=== PATIENT | male | born 2000 | race African-American/Black ===

== ENCOUNTER 2020-08-20 16:50 | Inpatient (IN) ==
[2020-08-20] MEDS ORDERED: DIPH/TET/ACEL PERT BOOSTER VACCINE 0.5 ML VIAL IM ONE (16:57)
[2020-08-20] MEDS ORDERED: LACTATED RINGERS 1,000 ML IV STA (16:57)
[2020-08-20 17:18] LABS: Basophils % 0.4 % (0.0-0.8); Eosinophils # 0.1 10*3/uL (0.0-0.87); Eosinophils % 0.7 % (0.00-10.9); Hematocrit 39.2 VOL% (42.0-52.0); Hemoglobin 13.1 GM/DL (14.0-18.0); Immature Granulocytes % 0.5 %; Immature Granulocytes Absolute 0.05 #; Lymphocytes # 4.1 10*3/uL (1.4-4.0); Lymphocytes % 38.4 % (21.2-54.2); Mean Corpuscular HGB Conc 33.4 GM/DL (32-36); Mean Corpuscular Volume 102.3 FL (87-102); Mean Platelet Volume 9.3 FL (9.6-12.0); Monocytes % 10.2 % (1.7-12.7); Neutrophils % 49.8 % (38.7-73.9); Platelet Count 305 T/CUMM (130-400); Red Blood Count 3.83 MC/CUMM (3.8-5.5); Red Cell Distribution Width 11.9 % (9.3-17.3); White Blood Count 10.8 T/CUMM (4-12)
[2020-08-20] MEDS ORDERED: ceFAZolin 2,000 MG in SYRINGE 1 EACH IV ONE (17:27)
[2020-08-20] MEDS ORDERED: propofoL 200 MG/20 ML VIAL IV ONE (17:28)
[2020-08-20] MEDS ORDERED: ROCURONIUM 50 MG/5 ML VIAL IV ONE (17:28)
[2020-08-20] MEDS ORDERED: MIDAZOLAM 2 MG/2 ML VIAL ONE (17:29)
[2020-08-20] MEDS ORDERED: SEVOFLURANE 1 UNIT/15 MINUTE INH ONE ×6 (17:29→19:32)
[2020-08-20] MEDS ORDERED: fentaNYL 100 MCG/2 ML VIAL ONE (17:29)
[2020-08-20] MEDS ORDERED: LIDOCAINE 2% 5 ML VIAL ONE (17:29)
[2020-08-20] MEDS ORDERED: SUCCINYLCHOLINE 200 MG/10 ML VIAL ONE (17:29)
[2020-08-20 17:37] LABS: PT Patient Result 11.2 SECS (9.8-11.9); Partial Thromboplastin Time 23.2 SECS (23.9-33.8)
[2020-08-20 17:42] LABS: Alanine Aminotransferase 20 U/L (16-61); Albumin 3.6 G/DL (3.4-5.0); Alkaline Phosphatase 61 U/L (45-117); Aspartate Amino Transferase 24 U/L (0-37); Blood Urea Nitrogen 9 MG/DL (7-18); Calcium 7.9 MG/DL (8.5-10.1); Carbon Dioxide 23 MMOL/L (21-32); Estimated Glom Filtration Rate 127 ML/MIN; Glucose 111 MG/DL (74-106); Osmolality,Calculated 280.3 MOS/KG (273-304); Potassium 3.1 MMOL/L (3.5-5.1); Sodium 141 MMOL/L (136-145); Total Protein 7.2 G/DL (5.0-7.5)
[2020-08-20] MEDS ORDERED: DEXAMETHASONE 4 MG/1 ML VIAL ONE (18:07)
[2020-08-20] MEDS ORDERED: PHENYLEPHRINE 1 MG/10 ML SYRINGE IV ONE (18:07)
[2020-08-20] MEDS ORDERED: ONDANSETRON 4 MG/2 ML VIAL ONE (18:07)
[2020-08-20] MEDS ORDERED: ceFAZolin 1,000 MG VIAL ONE (18:16)
[2020-08-20] MEDS ORDERED: MUPIROCIN 2% OINT 22 GM TUBE TOP ONE (19:00)
[2020-08-20] MEDS ORDERED: GLYCOPYRROLATE 0.4 MG/2 ML VIAL ONE (19:03)
[2020-08-20] MEDS ORDERED: NEOSTIGMINE 10 MG/10 ML VIAL ONE (19:04)
[2020-08-20] MEDS ORDERED: LACTATED RINGERS 3,000 ML IV ONE (19:06)
[2020-08-20] MEDS ORDERED: diphenhydrAMINE 50 MG/1 ML VIAL IV PRN (19:30)
[2020-08-20] MEDS ORDERED: HYDROmorphone 2 MG/1 ML VIAL IV PRN (19:31)
[2020-08-20 19:48] LABS: Bilirubin,Urine Negative (Negative); Blood, Urine Small mg/dL (Negative); Glucose,Urine (UA) Negative (Negative); Hyaline Casts,Urine 1 /LPF (0-3); Ketones,Urine Negative (Negative); Nitrite,Urine Negative (Negative); Protein,Urine Negative; RBC,Urine <1 /HPF (0-4); Urine Appearance CLEAR (Clear); Urine Color Straw (Yellow); Urine Specific Gravity 1.036 (1.001-1.035); Urine Urobilinogen < 2.0 EU/DL (0.2-1.0)
[2020-08-20 19:53] LABS: Barbiturates Screen,Urine Negative (Negative); Benzodiazepines Screen,Urine Positive (Negative); Cannabinoid Screen,Urine Positive (Negative); Opiate Screen,Urine Negative (Negative); Phencyclidine Screen,Urine Negative (Negative)
[2020-08-20] MEDS: LACTATED RINGERS 1,000 ML IV SCH (22:00)
[2020-08-20] MEDS: PIPERACILLIN/TAZOBACTAM 3,375 MG in SODIUM CHLORIDE 0.9% 100 ML IV SCH (22:00)
[2020-08-20] MEDS: ACETAMINOPHEN 325 MG TABLET PO SCH (22:01)
[2020-08-20] MEDS: oxyCODONE/ACETAMINOPHEN 5-325 MG TABLET PO PRN (22:03)
[2020-08-21] MEDS: LACTATED RINGERS 1,000 ML IV SCH ×2 (01:43→12:11)
[2020-08-21] MEDS: ACETAMINOPHEN 325 MG TABLET PO SCH ×2 (03:17→09:57)
[2020-08-21] MEDS: PIPERACILLIN/TAZOBACTAM 3,375 MG in SODIUM CHLORIDE 0.9% 100 ML IV SCH (05:35)
[2020-08-21] MEDS: oxyCODONE/ACETAMINOPHEN 5-325 MG TABLET PO PRN (07:47)
[2020-08-21 11:12] VITALS: BP 127/83
== END 2020-08-21 11:50 | disposition home or self-care (01) | DRG 711 ==
LOC: EDUNIT# → EDBD → N.ED 16:50 → N.3E 17:48
PROVIDERS: ADMIT Surgery; ATTEND Surgery